=== PATIENT | male | born 1975 | race Caucasian/White ===

== ENCOUNTER 2022-03-26 15:24 | Outpatient (CLI) | payer OTHER | END 2022-03-26 15:25 | disposition home or self-care (01) | LOC: SCSMRI 15:24 | PROVIDERS: ATTEND Nurse Practitioner Family | DX: M47.26 Other spondylosis with radiculopathy, lumbar region (principal); M51.16 Intervertebral disc disorders with radiculopathy, lumbar region; R60.0 Localized edema | CPT/HCPCS: 72100; 72148 ==